=== PATIENT | female | born 1985 | race Caucasian/White ===

== ENCOUNTER 2018-07-05 22:28 | Emergency (ER) | payer MEDICAID ==
[2018-07-05 23:01] VITALS: O2SAT 99
[2018-07-06] MEDS ORDERED: Sodium Chloride 0.9% 500 ML IV ONE (00:07)
[2018-07-06 00:25] LABS: BASO # 0.1 K/uL (0.0-0.2); EOS # 0.1 K/uL (0.0-0.7); EOS % 1.5 % (0.0-4.0); HEMOGLOBIN 12.3 g/dL (11.0-16.0); LYMPH # 2.8 K/uL (1.0-4.3); LYMPH % 31.6 % (20.0-40.0); MEAN CELL VOLUME 83.2 fL (81.0-99.0); MEAN CORPUSCULAR HEMOGLOBIN 27.2 pg (27.0-31.0); MEAN CORPUSCULAR HGB CONC 32.7 g/dL (33.0-37.0); MEAN PLATELET VOLUME 8.9 fL (7.2-11.7); MONO # 0.7 K/uL (0.0-0.8); MONO % 7.6 % (0.0-10.0); NEUT # 5.2 K/uL (1.8-7.0); NEUT % 58.3 % (50.0-75.0); RBC 4.54 Mil/uL (3.80-5.20); RED CELL DISTRIBUTION WIDTH 14.2 % (11.5-14.5); WHITE BLOOD COUNT 8.9 K/uL (4.8-10.8)
[2018-07-06] MEDS ORDERED: Sodium Chloride 0.9% 1,000 ML ONE (00:25)
[2018-07-06 00:31] LABS: HCG,QUALITATIVE URINE NEGATIVE (NEGATIVE)
[2018-07-06 00:39] LABS: ALB/GLOB RATIO 1.2 (1.0-2.1); ALBUMIN 4.2 g/dL (3.5-5.0); ALT/SGPT 46 U/L (9-52); AST/SGOT 33 U/L (14-36); BLOOD UREA NITROGEN 14 mg/dL (7-17); GFR NON-AFRICAN AMERICAN > 60
[2018-07-06 00:43] LABS: SQUAMOUS EPITHIAL 5 /hpf (0-5); URINE BACTERIA RARE (<OCC); URINE BILIRUBIN NEGATIVE (NEGATIVE); URINE BLOOD NEGATIVE (NEGATIVE); URINE CLARITY Clear (Clear); URINE COLOR Yellow (YELLOW); URINE GLUCOSE (UA) NORMAL (Normal); URINE LEUKOCYTE ESTERASE NEG Leu/uL (Negative); URINE PROTEIN NEGATIVE (NEGATIVE); URINE UROBILINOGEN NORMAL mg/dL (0.2-1.0)
--- NOTE | 2018-07-06 01:08 | C.PDOC ---
History Of Present Illness 33 year old female presents to the ED c/o generalized weakness, body aches, joint pain and malaise of the past 5 days. Patient also reports feeling dizzy described "spinning sensation" and palpitations. Patient states she was recently diagnosed with fibromyalgia. Patient denies fever, chills, nausea, vomit, diarrhea, URI symptoms, dysuria, hematuria. Time Seen by Provider: 07/05/18 23:17 Chief Complaint (Nursing): Weakness/Neurological Deficit History Per: Patient History/Exam Limitations: no limitations Onset/Duration Of Symptoms: Days (5) Current Symptoms Are (Timing): Still Present Associated Symptoms Preceding Syncopal Episode: No Predromal Symptoms (Sudden Onset) Seizure Or Post-ictal Symptoms: None Fall Associated With With Symptoms: No Severity: None Recent travel outside of the [place]: No Additional History Per: Patient Past Medical History Reviewed: Historical Data, Nursing Documentation, Vital Signs Vital Signs: Last Vital Signs Temp 97.4 F L 07/05/18 22:58 Pulse 89 07/05/18 22:58 Resp 16 07/05/18 22:58 BP 102/71 07/05/18 22:58 Pulse Ox 99 07/05/18 22:58 - Medical History PMH: Fibromyalgia Surgical History: No Surg Hx Family History: States: Unknown Family Hx - Social History Hx Alcohol Use: No Hx Substance Use: No Review Of Systems Constitutional: Positive for: Weakness, Malaise. Negative for: Fever, Chills Eyes: Negative for: Vision Change Cardiovascular: Negative for: Chest Pain, Palpitations Respiratory: Negative for: Shortness of Breath Gastrointestinal: Negative for: Nausea, Vomiting, Abdominal Pain Genitourinary: Negative for: Dysuria, Hematuria Skin: Negative for: Rash Neurological: Negative for: Weakness, Numbness, Headache Physical Exam - Physical Exam Appears: Non-toxic, No Acute Distress Skin: Normal Color, Warm, Dry Head: Atraumatic, Normacephalic Eye(s): bilateral: Normal Inspection, Other (no nystagmus) Oral Mucosa: Moist Neck: Normal ROM, Supple Chest: Symmetrical Cardiovascular: Rhythm Regular Respiratory: Normal Breath Sounds, No Rales, No Rhonchi, No Wheezing Gastrointestinal/Abdominal: Soft, No Tenderness, No Guarding, No Rebound Extremity: Normal ROM, No Tenderness, No Swelling Neurological/Psych: Oriented x3, Normal Speech, Normal Cognition, Normal Motor, Normal Sensation Gait: Steady ED Course And Treatment - Laboratory Results Result Diagrams: 07/06/18 00:20 07/06/18 00:20 Lab Results: Total Bilirubin 0.4 mg/dL (0.2-1.3) 07/06/18 00:20 AST 33 U/L (14-36) 07/06/18 00:20 ALT 46 U/L (9-52) 07/06/18 00:20 Alkaline Phosphatase 80 U/L (38-126) 07/06/18 00:20 Total Protein 7.6 g/dL (6.3-8.3) 07/06/18 00:20 Albumin 4.2 g/dL (3.5-5.0) 07/06/18 00:20 Globulin 3.4 gm/dL (2.2-3.9) 07/06/18 00:20 Albumin/Globulin Ratio 1.2 (1.0-2.1) 07/06/18 00:20 Urine Color Yellow (YELLOW) 07/06/18 00:14 Urine Clarity Clear (Clear) 07/06/18 00:14 Urine pH 5.0 (5.0-8.0) 07/06/18 00:14 Ur Specific [place] 1.021 (1.003-1.030) 07/06/18 00:14 Urine Protein Negative mg/dL (NEGATIVE) 07/06/18 00:14 Urine Glucose (UA) Normal mg/dL (Normal) 07/06/18 00:14 Urine Ketones Negative mg/dL (NEGATIVE) 07/06/18 00:14 Urine Blood Negative (NEGATIVE) 07/06/18 00:14 Urine Nitrate Negative (NEGATIVE) 07/06/18 00:14 Urine Bilirubin Negative (NEGATIVE) 07/06/18 00:14 Urine Urobilinogen Normal mg/dL (0.2-1.0) 07/06/18 00:14 Ur Leukocyte Esterase Neg [place]/uL (Negative) 07/06/18 00:14 Urine WBC (Auto) 2 /hpf (0-5) 07/06/18 00:14 Urine RBC (Auto) 3 /hpf (0-3) 07/06/18 00:14 Ur Squamous Epith Cells 5 /hpf (0-5) 07/06/18 00:14 Urine Bacteria Rare (<OCC) 07/06/18 00:14 Urine HCG, Qual Negative (NEGATIVE) 07/06/18 00:14 Urine HCG, Qual Negative (NEGATIVE) 07/06/18 00:14 ECG: Interpreted By Me, Viewed By Me ECG Rhythm: Sinus Rhythm Interpretation Of ECG: No acute ST/T wave changes Rate From EC (BPM) O2 Sat by Pulse Oximetry: 99 (ON RA) Pulse Ox Interpretation: Normal Progress Note: Plan: - Labs. - Iv fluids. - Toradol 30 mg IVP. - Meclazine 25 mg IVP. - UA. - EKG. Labs results were reviewed and discussed with patient. Patient reports feeling better after medication was given. Patient was advised to follow up with PMD for further evaluation . Disposition Counseled Patient/Family Regarding: Diagnosis, Need For Followup, Rx Given - Disposition Disposition: HOME/ ROUTINE Disposition Time: 01:04 Condition: STABLE Additional Instructions: KEEP YOURSELF WELL HYDRATED FOLLOW UP WITH PMD RETURN TO ER IF WORSE Prescriptions: Ibuprofen [Motrin] 600 mg PO Q6H #24 tab Meclizine [Meclizine*] 25 mg PO Q6 #10 tab Instructions: Vertigo (a Type of Dizziness) (DC), Muscle and Bone Pain (DC) Forms: [employer] ([place]) - Clinical Impression Clinical Impression: Vertigo, Myalgia - PA / ATTENUATOR / Resident Statement MD/DO has reviewed & agrees with the documentation as recorded. - Scribe Statement The provider has reviewed the documentation as recorded by the Scribe Lowell Roa All medical record entries made by the Scribe were at my direction and personally dictated by me. I have reviewed the chart and agree that the record accurately reflects my personal performance of the history, physical exam, medical decision making, and the department course for this patient. I have also personally directed, reviewed, and agree with the discharge instructions and disposition.
[2018-07-06 01:29] VITALS: BP 110/72; PULSE 80; RESP 18; TEMP 98.2
--- NOTE | 2018-07-07 13:53 | CARD ---
APPROVED REPORT Date of service: 07/06/2018 EKG Measurement Heart [id number] <Conclusion> Normal sinus rhythm Normal ECG
== END 2018-07-06 01:28 | disposition home or self-care (01) ==
LOC: C.ER 22:28
DX: R42 Dizziness and giddiness (principal); M79.10 Myalgia, unspecified site
CPT/HCPCS: 80053; 81001; 83735; 84703; 85025; 93005; 96374; 99285; J1885; J7040